=== PATIENT | female | born 1985 | race Caucasian/White ===

== ENCOUNTER 2019-07-05 23:56 | Emergency (ER) | payer OTHER ==
[~2019-07-05] VITALS: Ht 175.3 cm; Wt 90.9 kg
[~2019-07-05 23:56] MED LIST: BCP TD; CIPRO 500MG TA500 MG PO; CLARITIN; LORTAB 7.5/5001 TAB PO; PHENERGAN 25 TA25 MG PO
[2019-07-06 02:54] VITALS: BP 130/86; PULSE 86; TEMP 98.4
== END 2019-07-06 02:56 | disposition home or self-care (01) ==
LOC: COL.ER 23:56
DX: S01.21XA Laceration without foreign body of nose, initial encounter (principal); W54.0XXA Bitten by dog, initial encounter